=== PATIENT | female | born 1990 | race Caucasian/White ===

== ENCOUNTER 2018-10-10 21:00 | Inpatient (IN) | payer OTHER ==
[~2018-10-10 21:00] MED LIST: Acetaminophen 500 MG TAB PO PRN; Docusate 100 MG CAP PO PRN; Lidocaine 1% (PF) 30 ML VIAL SC PRN; Misoprostol 200 MCG TAB PR PRN; NS / Oxytocin 40 units/1000ml 1,000 ML IV PRN; Ondansetron PF 4 MG/2 ML Vial IVP PRN; Penicillin G Potassium 5 MILL.UNITS in Sodium Chloride 0.9% 100 ML IVPB SCH; Promethazine HCl 25 MG/ML VIAL IM PRN
--- NOTE | 2018-10-10 23:07 | PDOC.LDHP ---
Labor and Delivery H&P Chief complaint: scheduled induction HPI: Ms. Cooper is a 28 y/o @ 39wks by 8.3wk US presenting for scheduled induction Current gestational age (weeks): 39 Due date: 10/17/18 Dating criteria: first trimester ultrasound Grav: 2 Para: 1 OB History Details: VAVD for maternal fatigue, gHTN Current complications: gestational hypertension Abnormal US findings: No Current medications: pre-stephan vitamins Previous surgical history: none Social history: none - Physical Exam Vital signs reviewed and normal: yes General: NAD Heart: RRR Lungs: CTAB Abdomen: NTTP Extremeties: no edema FHT: category 1 (baseline 150, moderate variability, accels, no decels.) [place] contractions every: 0 - Vaginal Exam cm dilated: 3 Effacement: 50% Station: -2 - OB Labs Blood type: A RH: positive HIV: negative RPR: negative HEPSAg: negative 1 hour GCT: negative GBS: positive Urine drug screen: not done Rubella: immune - Assessment L&D Assessment: elective induction at term - Plan Plan: admit to L&D, GBS antibiotic prophylaxis -: sIUP induction at 39wks - pratt score of 8, favorable, begin pitocin induction 2hrs after ppx pcn started - LR 150 ml/hr - would like to hold off on epidural for now - titrate pitocin for augmentation - recheck in 4 hours GBS + - PCN prophylaxis beginning now Addendum - Attending - Attending Attestation Date/Time: 10/11/18 0814 I personally evaluated the patient and discussed the management with Dr. Hobbs. I agree with the History, Examination, Assessment and Plan documented above with any addition or exceptions noted below. Dr Hobbs confirmed presentation with bedside ultrasound.
[2018-10-10 23:13] LABS: Hemoglobin 12.2 g/dL (12.0-16.0); Mean Corpuscular HGB CONC 34.8 g/dL (32.0-36.0); Mean Platelet Volume 7.7 fL (7.4-10.4); Platelet Count 181 thou/uL (130-400); RBC Distribution Width 12.3 % (11.5-14.5); Red Blood Cell (RBC) Count 3.82 mill/uL (4.20-5.40)
[2018-10-10 23:53] LABS: Syphilis Antibody Nonreactive (Nonreactive); Syphilis Antibody Index 0.04 S/CO (<1.00 Non-Reactive)
[2018-10-10 23:58] VITALS: BMI 27.3
[2018-10-11 00:04] LABS: HBSAg Index 0.24 S/CO (0-0.99); Hep B Surf Ag Non-Reactive S/CO (NonReactive)
[2018-10-11] MEDS: Lactated Ringer's 1,000 ML IV SCH ×4 (00:30→07:48)
[2018-10-11] MEDS: Penicillin G 2.5 MILL.units 2.5 MILL.UNITS in Premix Bag 1 BAG IVPB SCH ×6 (00:30→16:11)
[2018-10-11] MEDS ORDERED: Oxytocin 10 UNITS/ML VIAL ONE (03:07)
[2018-10-11] MEDS ORDERED: NS w/ Oxytocin 10 units 500 ML IV SCH (03:15)
[2018-10-11] MEDS ORDERED: NS w/ Oxytocin 10 units 500 ML ONE (03:27)
--- NOTE | 2018-10-11 05:59 | PDOC.LDPN ---
Labor & Delivery Progress Note - Subjective Subjective: comfortable - Objective Vital signs reviewed and normal: yes General: NAD Uterine fundus: non tender Dilation: 3 Effacement: 50% Station: -2 FHT: category 1 (baseline 140, moderate variability, accels present ) [place] contractions every: 3-5mins Plan: continue plan of care -: sIUP induction at 39wks - LR 150 ml/hr - would like to hold off on epidural for now - titrate pitocin for augmentation - recheck in 2 hours GBS + - continue PCN prophylaxis
[2018-10-11] MEDS ORDERED: Terbutaline Sulfate 1 MG/ML VIAL SC SCH (08:00)
[2018-10-11] MEDS ORDERED: Mineral Oil PER 1 ML PO PRN (08:01)
--- NOTE | 2018-10-11 08:06 | PDOC.EVN ---
Event Note - Event Note Event Note: Called by RN to do US for presentation. On bedside US the baby is breech presentation with head to maternal right. KHAI > 12 Placenta anterior fundal. Pt offered options of external cephalic version vs delivery Risks/benefits/alternatives to external cephalic version were discussed including but not limited to risk of abruption, SROM with potential for cord prolapse, intolerance and need for emergency . Pt verbalized understanding of these risks and would like to proceed with external cephalic version.
[2018-10-11] MEDS ORDERED: Bicitra 30 ML UDCUP ONE (08:11)
[2018-10-11] MEDS ORDERED: Terbutaline Sulfate 1 MG/ML VIAL ONE (08:15)
[2018-10-11] MEDS ORDERED: BUPIVACAINE 0.5% FS SCH ×2 (11:00)
[2018-10-11] MEDS ORDERED: SODIUM CHLORIDE 0.9% FS SCH ×2 (11:00)
[2018-10-11] MEDS ORDERED: Bupivacaine 0.25% HCL 30 ML VIAL ONE (11:11)
[2018-10-11] MEDS ORDERED: Lidocaine 1.5%/Epinephrine 1:200,000 5 ML AMPUL IJ ONE (13:53)
[2018-10-11] MEDS ORDERED: ePHEDrine/0.9% NaCl/PF SYRINGE 50 mg/10 ml SLOW IVP PRN (14:40)
[2018-10-11] MEDS ORDERED: Naloxone HCl 0.4 mg/ml Vial IVP PRN ×2 (14:40)
[2018-10-11] MEDS ORDERED: Eucerin (Mineral Oil/Petrolatum,White) 30 gm Jar TOP PRN (14:40)
[2018-10-11] MEDS ORDERED: Acetaminophen 325 MG TAB PO PRN (14:40)
[2018-10-11] MEDS ORDERED: diphenhydrAMINE 50 MG/ML VIAL IVP PRN (14:40)
[2018-10-11] MEDS ORDERED: Promethazine HCl 25 MG/ML VIAL IM PRN (14:40)
[2018-10-11] MEDS ORDERED: Lactated Ringer's 500 ML IV PRN (14:40)
[2018-10-11] MEDS ORDERED: Ondansetron PF 4 MG/2 ML Vial IVP PRN (14:40)
[2018-10-11] MEDS ORDERED: Communication Order-Pharmacy FS SCH (14:45)
[2018-10-11] MEDS ORDERED: Fentanyl 4 mcg/Bupivacaine 0.1% Cassette 100 ML EPIDURAL SCH (14:45)
--- NOTE | 2018-10-11 17:33 | PDOC.OP ---
Operative Note - Operative Note Operative Note: Date: 10/11/18 Admit dx: 1. Term sIUP at 39.0 wks 2. Transverse lie 3. Increased maternal weight gain 4. Anemia of 5. GBS carrier Procedure: External cephalic version Indication: 28 yo female at 39.0 wks by 8.3 wk sono admitted for elective IOL. Patient originally presented on 10/10/18. Fetus was cephalic at time of admission confirmed by bedside sono. IOL was started at 0200 on 10/11/18 with pitocin. At 0800 heart tones were noted to change in location on maternal abdomen. Bedside sono confirmed transverse lie. Risk, benefits, and alternatives were discussed with patient, her , and her mother. Questions were answered. Consents signed. External version was performed in LDR room with OR ready as needed. Procedure in detail. Patient was placed in supine position. Pitocin was held for 2 hours. Continuous monitoring noted Cat 1 tracing with occasional contractions. Bedside sono was used to verify presentation and lie. KHAI was adequate at 12 cm. Placenta was noted to be anterior fundal. Terbutaline 0.25 mg SQ was given. Mineral oil was placed on the abdomen. Gentle traction/palpation was provided to the head and buttocks. Intermittent sono was used to monitor position and heart rate. Positive motion was noted throughout. After a short time, fetus was note to be cephalic. Complications: None. Dispo: Patient to be placed on continuous monitoring in upright position. May restart pitocin after 30 minutes of monitoring. ABrHaja
--- NOTE | 2018-10-11 17:45 | PDOC.OBLPN ---
FMR OB Labor PN: Subj - Interval History Hospital Day: 1 Chief Complaint: none Indentification: 28 yo female at 39.1 wks by 8.3 wk sono Interval History: Now s/p ECV. Will proceed with induction. FMR OB Labor PN: Obj - Maternal Vital signs: Reviewed. - Procedures Procedures: s/p ECV at 0900 FMR OB Labor PN: Exam - Physical Exam General: NAD, awake, alert and oriented HEENT: normocephalic and atraumatic, PERRLA, EOMI, MMM Deviation from normal: trace edema General: no respiratory distress Abdomen: soft, gravid, non-tender Skin: no rash, good tugor Psychiatric: normal mood and affect - Pelvic Exam Cervix: no masses, no lesions, no blood SVE: 3/50/-4 Membranes: intact Estimated Weight: 8 lbs FMR OB Labor PN: Data - Labs Lab results: Laboratory Results - last 24 hr 10/10/18 10/10/18 10/10/18 23:02 23:03 23:03 WBC RBC Hgb Hct MCV MCH MCHC RDW Plt Count MPV Syphilis IgG/IgM Ab Nonreactive Hep Bs Antigen Non-Reactive Blood Type A POSITIVE Antibody Screen NEGATIVE 10/10/18 23:03 WBC 9.0 RBC 3.82 L Hgb 12.2 Hct 35.1 L MCV 92.0 MCH 32.0 H MCHC 34.8 RDW 12.3 Plt Count 181 MPV 7.7 Syphilis IgG/IgM Ab Hep Bs Antigen Blood Type Antibody Screen FMR OB Labor PN: A/P - Problem List (1) Current Visit: Yes Status: Acute Assessment and Plan: Medical record reviewed. Anatomy grossly normal. Epidural for pain control as desires. Continue with current plan. (2) Elective induction of labor planned Current Visit: Yes Status: Acute Code(s): [id number] - Assessment and Plan: Cat 1 tracing. Tolerating pit well. Continuous monitoring. Repeat exam in 4 hours or as needed. (3) Transverse lie of fetus Current Visit: Yes Status: Acute Code(s): O32.2XX0 - MATERNAL CARE FOR TRANSVERSE AND OBLIQUE LIE, UNSP Assessment and Plan: s/p successful ECV. Continue to monitor. Currently remains cephalic. (4) GBS carrier Current Visit: Yes Status: Acute Code(s): Z22.330 - CARRIER OF GROUP B STREPTOCOCCUS Assessment and Plan: s/p 2 dose. Now adequately treated. Continue until delivery. No s/sx of infection. (5) Anemia affecting in third trimester Current Visit: Yes Status: Acute Code(s): O99.013 - ANEMIA COMPLICATING , THIRD TRIMESTER Assessment and Plan: H&H adequate. Disposition: Continue current plan. Repeat exam in 4 hours. Winston
--- NOTE | 2018-10-11 17:52 | PDOC.OBLPN ---
FMR OB Labor PN: Subj - Interval History Hospital Day: 1 Chief Complaint: none Indentification: 28 yo female at 39.1 wks by 8.3 wk sono Interval History: Pain controlled with Epidural. No complaints. FMR OB Labor PN: Obj - Maternal Vital signs: Reviewed - Procedures Procedures: s/p ECV at 0900 FMR OB Labor PN: Exam - Physical Exam General: NAD, awake, alert and oriented HEENT: normocephalic and atraumatic, PERRLA, EOMI, MMM General: no respiratory distress Abdomen: soft, gravid, non-tender Skin: no rash, good tugor Lymphatic: no unusual bruising or bleeding Psychiatric: normal mood and affect - Pelvic Exam Cervix: no masses, no lesions Deviation from normal: Bloody show SVE: 7/80/+1 Membranes: SROM Presentation: Cephalic Estimated Weight: 8 lbs FMR OB Labor PN: Data - Labs Lab results: Laboratory Results - last 24 hr 10/10/18 10/10/18 10/10/18 23:02 23:03 23:03 WBC RBC Hgb Hct MCV MCH MCHC RDW Plt Count MPV Syphilis IgG/IgM Ab Nonreactive Hep Bs Antigen Non-Reactive Blood Type A POSITIVE Antibody Screen NEGATIVE 10/10/18 23:03 WBC 9.0 RBC 3.82 L Hgb 12.2 Hct 35.1 L MCV 92.0 MCH 32.0 H MCHC 34.8 RDW 12.3 Plt Count 181 MPV 7.7 Syphilis IgG/IgM Ab Hep Bs Antigen Blood Type Antibody Screen FMR OB Labor PN: A/P - Problem List (1) Current Visit: Yes Status: Acute Qualifiers: Weeks of gestation: 39 weeks Qualified Code(s): Z3A.39 - 39 weeks gestation of Assessment and Plan: Continue current plan. Repeat exam in 2 hours. (2) Elective induction of labor planned Current Visit: Yes Status: Acute Code(s): [id number] - Assessment and Plan: Continue pitocin per protcol. Cat 1 tracing. Repeat exam in 2 hours. (3) Transverse lie of fetus Current Visit: Yes Status: Acute Code(s): O32.2XX0 - MATERNAL CARE FOR TRANSVERSE AND OBLIQUE LIE, UNSP Assessment and Plan: s/p successful EVC. (4) GBS carrier Current Visit: Yes Status: Acute Code(s): Z22.330 - CARRIER OF GROUP B STREPTOCOCCUS Assessment and Plan: s/p adequate treatment. Continue PCN until delivery. (5) Anemia affecting in third trimester Current Visit: Yes Status: Acute Code(s): O99.013 - ANEMIA COMPLICATING , THIRD TRIMESTER Assessment and Plan: H&H stable. Disposition: Repeat exam in 2 hours. Cat 1 tracing. Pit per protocol. Winston
--- NOTE | 2018-10-11 20:37 | PDOC.OBLPN ---
FMR OB Labor PN: Subj - Interval History Hospital Day: 1 Chief Complaint: pressure Indentification: 28 yo female at 39.1 wks by 8.3 wk sono Interval History: Vaginal pressure. FMR OB Labor PN: Obj - Maternal Vital signs: reviewed - Procedures Procedures: s/p ECV FMR OB Labor PN: Exam - Physical Exam General: NAD, awake, alert and oriented HEENT: normocephalic and atraumatic, PERRLA, EOMI General: no respiratory distress Abdomen: soft, gravid, non-tender Skin: no rash, good tugor Lymphatic: no unusual bruising or bleeding Psychiatric: normal mood and affect - Pelvic Exam Cervix: no masses, no lesions SVE: 10/100/+3 Membranes: SROM 14:53 Presentation: Cephalic Estimated Weight: 8 lbs FMR OB Labor PN: Data - Labs Lab results: Laboratory Results - last 24 hr 10/10/18 10/10/18 10/10/18 23:02 23:03 23:03 WBC RBC Hgb Hct MCV MCH MCHC RDW Plt Count MPV Syphilis IgG/IgM Ab Nonreactive Hep Bs Antigen Non-Reactive Blood Type A POSITIVE Antibody Screen NEGATIVE 10/10/18 23:03 WBC 9.0 RBC 3.82 L Hgb 12.2 Hct 35.1 L MCV 92.0 MCH 32.0 H MCHC 34.8 RDW 12.3 Plt Count 181 MPV 7.7 Syphilis IgG/IgM Ab Hep Bs Antigen Blood Type Antibody Screen FMR OB Labor PN: A/P - Problem List (1) Current Visit: Yes Status: Acute Qualifiers: Weeks of gestation: 39 weeks Qualified Code(s): Z3A.39 - 39 weeks gestation of Assessment and Plan: Will set up for delivery. (2) Elective induction of labor planned Current Visit: Yes Status: Acute Code(s): [id number] - Assessment and Plan: set up for delivery. (3) Transverse lie of fetus Current Visit: Yes Status: Acute Code(s): O32.2XX0 - MATERNAL CARE FOR TRANSVERSE AND OBLIQUE LIE, UNSP Assessment and Plan: s/p successful ECV. (4) GBS carrier Current Visit: Yes Status: Acute Code(s): Z22.330 - CARRIER OF GROUP B STREPTOCOCCUS Assessment and Plan: Adequate treatment. (5) Anemia affecting in third trimester Current Visit: Yes Status: Acute Code(s): O99.013 - ANEMIA COMPLICATING , THIRD TRIMESTER Assessment and Plan: H&H stable. Disposition: Begin pushing. Expecting uncomplicated . Winston
--- NOTE | 2018-10-11 20:42 | PDOC.OPDEL ---
OB Operative/Delivery Note Delivery Dr/Surgeon: Itzel Mendoza MD Assist: None Pre-Delivery Diagnosis: elective induction Procedure/Post Delivery Dx: spontaneous vaginal delivery Weeks gestation: 39 Anesthesia: epidural - Findings A Sex: female (Delivered at 195 in OA position.) - 1 min: 8 - 5 min: 9 - Additional Findings/Plan Placenta delivered: spontaneous Repaired Obstetrical Laceration: 2nd degree Estimated blood loss: 500 mL. QBL = 30 mL. Post delivery plan: routine recovery
[2018-10-11] MEDS ORDERED: Milk Of Magnesia 30 ML UDCUP PO PRN (23:05)
[2018-10-11] MEDS ORDERED: Bisacodyl 10 MG SUPP PR PRN (23:05)
[2018-10-11] MEDS ORDERED: diphenhydrAMINE 25 MG CAP PO PRN (23:05)
[2018-10-11] MEDS ORDERED: HYDROcodone/Acetaminophen 5/325 mg Tablet PO PRN (23:05)
[2018-10-11] MEDS ORDERED: Benzocaine/Menthol 20-0.5% 60 ML CAN TOP PRN (23:05)
[2018-10-11] MEDS ORDERED: Lanolin Ointment 7 GM TUBE TOP PRN (23:05)
[2018-10-11] MEDS ORDERED: NS / Oxytocin 40 units/1000ml 1,000 ML IV SCH (23:05)
[2018-10-11] MEDS ORDERED: Preparation H Ointment 28 GM TUBE PR PRN (23:05)
[2018-10-11] MEDS ORDERED: Docusate Calcium (SURFAK) 240 MG CAP PO SCH (23:45)
[2018-10-11] MEDS ORDERED: Ibuprofen 800 MG TAB PO SCH (23:45)
--- NOTE | 2018-10-12 05:26 | PDOC.PP ---
Post Progress Note Post Day #: 1 Subjective: Pt states she did well overnight. She denies chest pain, SOB, headache, Dizziness, or lightheadedness. She has been taking in PO intake without nausea. She has not ambulated today but plans to take a shower and walk around today. Lochia is about a period at this time. PO intake tolerated: yes Flatus: yes Ambulation: no Vital Signs (12 hours) Temp Pulse Resp BP Pulse Ox 10/12/18 04:20 98.1 F 79 18 114/64 10/12/18 00:40 97.9 F 80 16 111/55 L 10/11/18 23:40 98.1 F 88 16 116/61 99 Weight Weight 81.647 kg - Physical Examination General: NAD Cardiovascular: no m/r/g, RRR Respiratory: clear to auscultation bilaterally, non-labored breathing Abdominal: + bowel sounds, lochia, no distention, appropriately TTP Fundus firm & at: 2cm below umbilicus Extremities: negative homans (B) Neurological: no gross focal deficits Psychiatric: A&Ox3, normal affect Result Diagrams: 10/12/18 06:27 Additional Labs: Post Labs Blood Type A POSITIVE 10/10/18 23:03 Hep Bs Antigen Non-Reactive S/CO (NonReactive) 10/10/18 23:02 (1) Term delivered Code(s): O80 - ENCOUNTER FOR FULL-TERM UNCOMPLICATED DELIVERY Status: Acute (2) GBS carrier Code(s): Z22.330 - CARRIER OF GROUP B STREPTOCOCCUS Status: Acute - Assessment/Plan This is a 28 yo G2 now P2002 who delivered at 39.1 wks at 1952 on 10/11/18 Term sIUP delivered -Routine care -Encourage early ambulation -Encourage breast feeding -New mother education GBS positive with adequate treatment -Monitor for signs of infection Addendum - Attending - Attending Attestation Date/Time: 10/12/18 0857 I personally evaluated the patient and discussed the management with Dr. Hayes I agree with the History, Examination, Assessment and Plan documented above with any addition or exceptions noted below. 28 yo female s/p uncomplicated on 10/11/18 at 1953. HD#2 PPD#1 Doing well. No acute changes. No vaginal swelling/edema. Voiding well. Ambulating well. Lochia mild. Breast feeding. VS reviewed. Labs reviewed. NAD. Holding infant. RRR. no murmurs CTAB. no wheezing, crackles. NT/ND. Fundus firm below umbilicus. FROM. no c/c/e 1. s/p : Doing well. No acute changes. Meeting milestones. Would like early d /c if infant well. 2. Anemia: Stable. 3. 2nd degree perineal lac: Healing well. No complications at present. Winston
[2018-10-12 07:38] LABS: Hemoglobin 11.4 g/dL (12.0-16.0); Mean Corpuscular HGB CONC 33.8 g/dL (32.0-36.0); Mean Corpuscular Hemoglobin 31.7 pg (27.0-31.0); Mean Corpuscular Volume 93.7 fL (78.0-98.0); Platelet Count 165 thou/uL (130-400); RBC Distribution Width 12.4 % (11.5-14.5); Red Blood Cell (RBC) Count 3.59 mill/uL (4.20-5.40); White Blood Cell (WBC) Count 11.2 thou/uL (4.8-10.8)
[2018-10-12] MEDS: Ibuprofen 800 MG TAB PO SCH ×2 (08:51→17:28)
[2018-10-12] MEDS: Docusate Calcium (SURFAK) 240 MG CAP PO SCH ×2 (08:51→21:12)
[2018-10-12] MEDS ORDERED: Prenatal Vitamin 1 TAB PO SCH (09:00)
[2018-10-12 20:51] VITALS: BP 111/61; TEMP 98.3
[2018-10-12] MEDS: Lactated Ringer's 1,000 ML IV SCH (20:55)
[2018-10-12] MEDS: Penicillin G 2.5 MILL.units 2.5 MILL.UNITS in Premix Bag 1 BAG IVPB SCH (20:56)
== END 2018-10-12 22:00 | disposition home or self-care (01) | DRG 807 ==
LOC: L&D 22:01 → 3SW 10-11 23:32
PROVIDERS: ADMIT Student in an Organized Health Care Education/Training Program; ATTEND Student in an Organized Health Care Education/Training Program
PROC: 10S0XZZ Reposition Products of Conception, External Approach (ICD-10-PCS; principal; 2018-10-11)
PROC: 10E0XZZ Delivery of Products of Conception, External Approach (ICD-10-PCS; 2018-10-11)
PROC: 0KQM0ZZ Repair Perineum Muscle, Open Approach (ICD-10-PCS; 2018-10-11)
DX: O13.4 Gestational [pregnancy-induced] hypertension without significant proteinuria, complicating childbirth (principal); Z37.0 Single live birth; O99.824 Streptococcus B carrier state complicating childbirth; O32.1XX0 Maternal care for breech presentation, not applicable or unspecified; O99.02 Anemia complicating childbirth; D64.9 Anemia, unspecified; O32.2XX0 Maternal care for transverse and oblique lie, not applicable or unspecified; O70.1 Second degree perineal laceration during delivery; Z3A.39 39 weeks gestation of pregnancy
CPT/HCPCS: 36415; 51702; 59412; 76815; 85027; 86780; 86850; 86900; 86901; 87340; J2001; J2540; J2590; J3105; J3490; J7050; S0020